=== PATIENT | female | born 1955 | race Caucasian/White ===

== ENCOUNTER 2019-06-01 05:06 | Inpatient (IN) | payer OTHER ==
[~2019-06-01] VITALS: Ht 162.6 cm; Wt 86.2 kg
[2019-06-01] VITALS (12 sets, daily range): BP systolic 122–157; BP diastolic 1–107
--- NOTE | 2019-06-01 05:30 | NUR ---
RN MS ADMITTING NOTES SCHEDULED DAY SURGERY PATIENT CAME IN FOR DAY SURGERY FOR LEFT TOTAL KNEE ARTHROPLASTY, CONSENTS SIGNED BELONGINGS LIST DONE, IV SITE TO LEFT WRIST #20 G INTACT AND PATENT, PER PATIENT STATES " SHE HAS NO WOUNDS OR SKIN ISSUES", MED RECON IN PLACE, MEDICATIONS PLACED IN MEDICATION ENVELOPE PATIENT AWARE OF MEDS WILL BE PLACED IN PHARMACY , RECIEPT IN CHART, ACCUCHECK 227 PATIENT IS NPO, ALL NEEDS ATTENDED AT THIS TIME, ALLERGIES PLACED , STATES ALLERGIC TO ANCEF, KEFLEX, MORPHINE, AND VANCOMYCIN.
[2019-06-01] MEDS ORDERED: GLIP10TA11 PO (05:36)
[2019-06-01] MEDS ORDERED: METF750T2 PO (05:36)
[2019-06-01] MEDS ORDERED: SIMV20TA6 PO (05:36)
--- NOTE | 2019-06-01 06:00 | NUR ---
RN MS NOTES RECEIVED CALL FROM DAY SURGERY , MADE AWARE OF ALLERGIES. PER SURGERY OKAY TO SEND PATIENT.
[2019-06-01] MEDS ORDERED: ANESTHESIA TRAY IN PYXIS 1 EA TRAY MC ONE (06:06)
[2019-06-01] MEDS ORDERED: BACITRACIN 50000 UNITS/VIAL ONE (06:07)
--- NOTE | 2019-06-01 06:23 | NUR ---
mari bernabe notes patient was picked up by surgery staff left in stable condition. Addendum: 06/01/19 at 0724 by EDWAR DSOUZA RN closing notes
[2019-06-01] MEDS ORDERED: MIDAZOLAM HCL 2 MG/2ML VIAL ONE (06:26)
[2019-06-01] MEDS ORDERED: FENTANYL PF 250MCG/5ML AMPUL ONE (06:27)
[2019-06-01] MEDS ORDERED: FENTANYL PF 100MCG/2ML AMPUL ONE (06:28)
[2019-06-01] MEDS ORDERED: BUPIVACAINE 0.25% 75 MG/30 ML VIAL ONE (06:28)
[2019-06-01] MEDS ORDERED: CLINDAMYCIN 900 MG/6 ML VIAL ONE (06:47)
[2019-06-01] MEDS ORDERED: TRANEXAMIC ACID 3,000 MG in SODIUM CHLORIDE IRRIG SOLUTION 70 ML IR ONE (07:00)
--- NOTE | 2019-06-01 07:21 | NUR ---
rn ms notes will take patient medications to pharmacy
--- NOTE | 2019-06-01 07:30 | NUR ---
MS DARCY AM NOTES RECEIVED REPORT FROM [employer] APPRENTICE. PATIENT PICKED UP AND TAKEN FOR SCHEDULED SURGERY.
[2019-06-01] MEDS ORDERED: BUPIVACAINE 0.5 % PF 150 MG/30 ML VIAL ONE (08:28)
--- NOTE | 2019-06-01 10:00 | NUR ---
MS RN NOTES PATIENT BACK FROM SURGERY. S/P TKA LEFT KNEE BY DR. BAUGH. AAO X3. NOT IN ANY DISTRESS. SURGICAL DRESSING TO LEFT KNEE. ALL POST OP ORDERS CARRIED OUT. VS TAKEN STABLE AND RECORDED.
[2019-06-01] MEDS ORDERED: DEXTROSE 50%-WATER 50 ML DISP.SYRIN IV PRN (11:30)
[2019-06-01] MEDS ORDERED: ONDANSETRON HCL/PF 4 MG/2 ML VIAL IV PRN (11:30)
[2019-06-01] MEDS: BLOOD SUGAR DIAGNOSTIC 1 EACH STRIP IN SCH ×3 (12:00→21:31)
[2019-06-01] MEDS ORDERED: COLACE 250 MG CAPSULE PO PRN (12:30)
[2019-06-01] MEDS ORDERED: ZOFRAN 4mg/2ML IV PRN (12:30)
[2019-06-01] MEDS ORDERED: DULCOLAX 10 MG/SUPP.RECT RC PRN (12:30)
[2019-06-01] MEDS ORDERED: TYLENOL 650 MG TABLET PO PRN (12:30)
[2019-06-01] MEDS ORDERED: AMBIEN 5 MG TABLET PO PRN (12:30)
[2019-06-01] MEDS ORDERED: SENOKOT 8.6 MG TABLET PO PRN (12:30)
[2019-06-01] MEDS ORDERED: oxyCODONE/APAP (5/325 MG) 1 UDTAB TABLET PO PRN ×2 (13:00)
[2019-06-01] MEDS ORDERED: HYDROCODONE/APAP 5/325MG 1 EACH TABLET PO PRN (13:00)
[2019-06-01] MEDS: CLINDAMYCIN 600 MG in IV D5W 50 ML IV SCH ×2 (13:54→18:15)
[2019-06-01] MEDS: IV D5/0.45 NACL 1,000 ML IV PRN ×2 (15:33→23:45)
[2019-06-01] MEDS: INSULIN REGULAR, HUMAN 100 UNIT/ML 3 ML VIAL SQ PRN ×2 (17:46→21:35)
[2019-06-01] MEDS: SIMVASTATIN 20 MG TABLET PO SCH (18:15)
--- NOTE | 2019-06-01 19:10 | NUR ---
CHANGE OF SHIFT REPORT Patient in bed, on RA, no evidence of shortness of breath. Left knee dressing C/D/I s/p TKA Left today per report. IVF infusing. Patient reports no pain at this time. Instruction to use call light for assistance, verbalized understanding. Maintained safety.
[2019-06-01] MEDS ORDERED: HYDROMORPHONE 1 MG/1 ML DISP.SYRIN SQ ONE (19:22)
[2019-06-01] MEDS ORDERED: diphenhydrAMINE HCL 25 MG CAPSULE PO PRN (19:30)
[2019-06-01] MEDS ORDERED: hydrOXYzine 10 MG TABLET PO PRN (19:30)
[2019-06-01] MEDS ORDERED: HYDROMORPHONE 1 MG/1 ML DISP.SYRIN SQ PRN ×2 (19:30→20:00)
[2019-06-01] MEDS ORDERED: MAGNESIUM HYDROXIDE 30 ML UDC PO PRN (19:30)
[2019-06-01] MEDS ORDERED: CLONIDINE HCL 0.1 MG TABLET PO PRN (19:30)
[2019-06-01] MEDS ORDERED: MAG HYDROX/AL HYDROX/SIMETH 30 ML UDC PO PRN (20:00)
--- NOTE | 2019-06-01 20:05 | NUR ---
PAIN MANAGEMENT Patient is seen by Dr. Fraser for pain management. Dilaudid indication and possible s/e explained to patient, verbalized understanding. Dilaudid given, will reassess pain scale. Maintained safety.
[2019-06-01] MEDS: FAMOTIDINE (20 MG) 20 MG TABLET PO SCH (21:07)
[2019-06-01] MEDS: CITALOPRAM HYDROBROMIDE 10 MG TABLET PO SCH (21:10)
--- NOTE | 2019-06-01 21:12 | NUR ---
REFUSED CELEXA Education provided, risk and benefits explained. Opened medication was wasted.
[2019-06-01] MEDS: oxyCODONE IR immediate release 5 MG PO PRN (23:29)
--- NOTE | 2019-06-02 00:01 | NUR ---
URINALYSIS Urine specimen collected and sent to lab for test.
[2019-06-02] MEDS ORDERED: hydrOXYzine 10 MG TABLET PO PRN (01:30)
[2019-06-02] MEDS: oxyCODONE IR immediate release 5 MG PO PRN ×2 (02:33→14:08)
[2019-06-02 06:17] LABS: BASOPHILS % (AUTO) 0.2 % (0.0-2.0); EOSINOPHILS % (AUTO) 0.4 % (0.0-6.0); HEMATOCRIT 41 % (33-45); HEMOGLOBIN 13.8 g/dL (11.5-14.8); LYMPHOCYTES # (AUTO) 1.5 /CMM (0.8-4.8); LYMPHOCYTES % (AUTO) 14.1 % (20.0-44.0); MEAN CORPUSCULAR HGB CONC 34 g/dl (31.0-36.0); MEAN CORPUSCULAR VOLUME 93 fL (82-100); MONOCYTES # (AUTO) 0.9 /CMM (0.1-1.30); MONOCYTES % (AUTO) 8.6 % (2.0-12.0); NEUTROPHILS # (AUTO) 8.3 /CMM (1.8-8.9); NEUTROPHILS % (AUTO) 76.7 % (43.0-81.0); PLATELET COUNT (AUTO) 213 /CMM (150-450); RED BLOOD CELL COUNT(AUTO) 4.41 MIL/uL (4.0-5.2); WHITE BLOOD COUNT (AUTO) 10.8 K/uL (4.3-11.0)
--- NOTE | 2019-06-02 06:20 | NUR ---
END OF SHIFT REPORT Patient in bed, Stable oxygen saturation on RA. Left knee dressing C/D/I, pain managed with PRN Oxy IR and PRN Dilaudid. MD to change dressing, s/p Left TKA yesterday by Dr. De La Rosa. IVF infusing, maintained at 125ml/hr. IV abx as scheduled with no adverse s/e. Flores cath to gravity with adequate output. PT consult, FWB LLE per ortho. Maintained safety, fall precaution. Will endorse to oncoming RN.
[2019-06-02 06:24] LABS: APPEARANCE,URINE SL CLOUDY (CLEAR); BILIRUBIN,URINE NEGATIVE (NEGATIVE); BLOOD, URINE 3+ Ery/uL (NEGATIVE); KETONES,URINE NEGATIVE (NEGATIVE); LEUKOCYTE ESTERASE ,URINE TRACE (NEGATIVE); NITRITE, URINE NEGATIVE (NEGATIVE); PH,URINE 5.5 (5.0-8.0); PROTEIN,URINE NEGATIVE (NEGATIVE); UGLUCOSE 3+ mg/dL (NEGATIVE); UROBILINOGEN,URINE 0.2 EU/dL (0.2)
[2019-06-02 06:29] LABS: COLOR,URINE YELLOW (YELLOW)
[2019-06-02 06:41] LABS: BACTERIA,URINE Moderate /HPF (None Seen); SQUAMOUS EPITHELIAL CELL,UR Few /HPF (None Seen)
[2019-06-02 06:42] LABS: CALCIUM, SERUM 8.1 mg/dL (8.5-10.1); CREATININE 0.9 mg/dL (0.6-1.3); MAGNESIUM 1.7 mg/dL (1.8-2.4)
[2019-06-02] MEDS: INSULIN REGULAR, HUMAN 100 UNIT/ML 3 ML VIAL SQ PRN ×4 (06:52→21:43)
[2019-06-02] MEDS: BLOOD SUGAR DIAGNOSTIC 1 EACH STRIP IN SCH ×4 (06:52→21:39)
--- NOTE | 2019-06-02 07:35 | NUR ---
ms rn received on bed, awake,alert,oriented x4,not in any form of distress, respirations even and unlabored,no sob noted, lungs are clear, abdomen soft,positive bowel sounds, s/p knee surgery, denies pain at this time, will monitor patient's condition.
[2019-06-02 08:00] VITALS: BP 165/91
[2019-06-02] MEDS ORDERED: Magnesium 1GM/D5W 100ML PREMIX PIGGYBACK IV ONE (09:00)
--- NOTE | 2019-06-02 09:20 | NUR ---
ms guerra breakfast served,due meds given,tolerated well.
[2019-06-02] MEDS: IV D5/0.45 NACL 1,000 ML IV PRN (09:40)
[2019-06-02] MEDS: ASPIRIN 325 MG TABLET PO SCH ×2 (09:40→18:12)
[2019-06-02] MEDS: FAMOTIDINE (20 MG) 20 MG TABLET PO SCH ×2 (09:40→21:36)
[2019-06-02] MEDS: DOCUSATE SODIUM 100 MG CAPSULE PO SCH ×2 (09:40→18:12)
[2019-06-02] MEDS: HYDROMORPHONE 1 MG/1 ML DISP.SYRIN SQ PRN (10:04)
[2019-06-02 15:29] VITALS: BP 153/91
[2019-06-02] MEDS: SIMVASTATIN 20 MG TABLET PO SCH (18:12)
--- NOTE | 2019-06-02 19:00 | NUR ---
MS RN ON BED, NO DISTRESS NOTED.
--- NOTE | 2019-06-02 19:05 | NUR ---
CHANGE OF SHIFT REPORT Patient is awake sitting in the chair. On RA, no evidence of shortness of breath. Left knee dressing C/D/I. IVF infusing. Patient reports no pain at this time. Instruction to use call light for assistance, verbalized understanding. Maintained safety.
[2019-06-02 20:00] VITALS: BP_SYST 120; BP_SYST 140; BP_SYST 148; BP_DIAS 73; BP_DIAS 90
[2019-06-02] MEDS: CITALOPRAM HYDROBROMIDE 10 MG TABLET PO SCH (21:36)
[2019-06-02] MEDS: INSULIN GLARGINE, 100 UNIT/ML CARTRIDGE SQ SCH (21:44)
--- NOTE | 2019-06-03 06:08 | NUR ---
END OF SHIFT REPORT Patient in bed, Stable oxygen saturation on RA. Left knee dressing C/D/I, denies pain. Voiding well. Ambulates to the bathroom, FWB LLE, FWW standby assist. Fall precaution. Dressing to be changed by ortho today. Maintained safety, will endorse to oncoming RN.
[2019-06-03] MEDS: INSULIN REGULAR, HUMAN 100 UNIT/ML 3 ML VIAL SQ PRN ×4 (07:23→21:37)
[2019-06-03] MEDS: BLOOD SUGAR DIAGNOSTIC 1 EACH STRIP IN SCH ×4 (07:23→21:15)
--- NOTE | 2019-06-03 07:55 | NUR ---
MS RN RECEIVED ON BED, AWAKE, ALERT,ORIENTED X4,NOT IN ANY FORM OF DISTRESS, S/P LEFT KNEE SURGERY W/ DRESSING DRY AND INTACT, DENIES PAIN AT THIS TIME, WILL MONITOR PATIENT'S CONDITION.
[2019-06-03 08:00] VITALS: BP 153/79
[2019-06-03] MEDS: ASPIRIN 325 MG TABLET PO SCH ×2 (08:44→17:38)
[2019-06-03] MEDS: DOCUSATE SODIUM 100 MG CAPSULE PO SCH ×2 (08:44→17:35)
[2019-06-03] MEDS: FAMOTIDINE (20 MG) 20 MG TABLET PO SCH ×2 (08:44→21:00)
[2019-06-03] MEDS: METFORMIN 500 MG TABLET PO SCH ×2 (08:44→17:35)
--- NOTE | 2019-06-03 09:30 | NUR ---
MS TAVERAS BREAKFAST SERVED,DUE MEDS GIVEN,TOLERATED WELL.
[2019-06-03] MEDS ORDERED: MAGNESIUM HYDROXIDE 30 ML UDC PO ONE (14:53)
[2019-06-03 16:00] VITALS: BP 141/87
--- NOTE | 2019-06-03 17:00 | NUR ---
MS RN PATIENT TRANSFERRED TO 309-1,ALL NEEDS ATTENDED.
[2019-06-03] MEDS: SIMVASTATIN 20 MG TABLET PO SCH (17:34)
[2019-06-03] MEDS: HYDROMORPHONE 1 MG/1 ML DISP.SYRIN SQ PRN (18:25)
[2019-06-03 20:00] VITALS: BP 120/66
--- NOTE | 2019-06-03 20:00 | NUR ---
MS/RN OPENING NOTES RECEIVED PATIENT IN BED, AWAKE, ALERT X3, ABLE TO VERBALIZE NEEDS, REPORTED TOLERABLE PAIN, ABLE TO DISTRACT SELF BY WATCHIN TV, COMPLIANT TO MEDICATION, RESPIRATIONS EVEN AND UNLABORED, SKIN WARM TO TOUCH, ABLE TO AMBULATE WITH WALKER. BED LOCKED, CALL LIGHTS WITHIN REACH, WILL MONITOR, INSTRUCTED TO USE CALL LIGHTS FOR ASSISTACNE, BELONGINGS WITHIN REACH, FLUIDS PROVIDED.
[2019-06-03] MEDS: CITALOPRAM HYDROBROMIDE 10 MG TABLET PO SCH (21:24)
[2019-06-03] MEDS: INSULIN GLARGINE, 100 UNIT/ML CARTRIDGE SQ SCH (21:30)
--- NOTE | 2019-06-04 00:47 | NUR ---
///DARCY NOTES/PAIN REPORTED ON LEFT LEG DILAUDID ML GIVEN FOR PAIN LEVEL IV WILL MONITOR. Addendum: 06/04/19 at 0422 by CLAIRE HAUSER RN /DARCY NOTES PER ORDEROF PAIN MANAGEMENT TO ADMINISTER DILAUDID VIA SQ ROUTE MONITORED FOR SAFETY.
[2019-06-04] MEDS: BLOOD SUGAR DIAGNOSTIC 1 EACH STRIP IN SCH ×2 (06:15→12:53)
[2019-06-04] MEDS: INSULIN REGULAR, HUMAN 100 UNIT/ML 3 ML VIAL SQ PRN ×2 (06:42→12:57)
--- NOTE | 2019-06-04 07:14 | NUR ---
309-1 MS/RN NOTES PATIENT ABLE TO SLEEP DURING THE NIGHT, PAIN MONITORED AND MANAGED WITH RELIEF, COMPLIANT TO CARE, MOTIVATED, KEPT COMFORTABLE, FLUIDS AND SNACKS OFFERED. BED LOCKED, CALL LIGHTS WITHIN REACH. WILL MONITOR AND ENDORSE TO AM RN FOR BRAYDON.
--- NOTE | 2019-06-04 07:50 | NUR ---
ms rn received on bed, awake,alert,oriented x4,not in any form of distress, respirations even and unlabored,no sob noted, lungs are,clear,abdomen soft,positive bowel sounds,denies pain at this time, radu monitor patient's condition.
[2019-06-04 08:00] VITALS: BP 125/65
[2019-06-04] MEDS: METFORMIN 500 MG TABLET PO SCH ×2 (09:40→17:04)
[2019-06-04] MEDS: FAMOTIDINE (20 MG) 20 MG TABLET PO SCH (09:40)
[2019-06-04] MEDS: ASPIRIN 325 MG TABLET PO SCH ×2 (09:40→17:04)
[2019-06-04] MEDS: DOCUSATE SODIUM 100 MG CAPSULE PO SCH ×2 (09:40→17:04)
[2019-06-04] MEDS: oxyCODONE IR immediate release 5 MG PO PRN ×2 (09:55→17:05)
--- NOTE | 2019-06-04 10:00 | NUR ---
ms mari dyer served,due meds given,tolerated well.
--- NOTE | 2019-06-04 11:00 | NUR ---
ms rn was seen by esther escamilla/ order to go home today.
[2019-06-04 16:00] VITALS: BP 114/60
--- NOTE | 2019-06-04 17:00 | NUR ---
ms rn patient's dressing changed,w/ no complication noted.
[2019-06-04] MEDS: SIMVASTATIN 20 MG TABLET PO SCH (17:04)
--- NOTE | 2019-06-04 17:20 | NUR ---
ms rn patient went home accompanied by son, instructions given, though how to give lantus at night,all needs attended.
== END 2019-06-04 17:31 | disposition home health service (06) | DRG 470 ==
LOC: DS 05:06 → MED 05:16
PROVIDERS: ADMIT Nurse Practitioner Acute Care; ATTEND Nurse Practitioner Acute Care
PROC: 0SRD0J9 Replacement of Left Knee Joint with Synthetic Substitute, Cemented, Open Approach (ICD-10-PCS; principal; 2019-06-01)
DX: M17.12 Unilateral primary osteoarthritis, left knee (principal); E87.1 Hypo-osmolality and hyponatremia; E66.9 Obesity, unspecified; E78.5 Hyperlipidemia, unspecified; Z68.32 Body mass index [BMI] 32.0-32.9, adult; E83.42 Hypomagnesemia; F41.9 Anxiety disorder, unspecified; E11.65 Type 2 diabetes mellitus with hyperglycemia; Z79.84 Long term (current) use of oral hypoglycemic drugs
CPT/HCPCS: 36415; 80048-TC; 81000-TC; 82962-TC; 83735-TC; 85025-TC; 85027-TC; 87081-TC; 87086-TC; 88305-TC; 88311-TC; 97110-TC; 97116-TC; 97530-TC; 97760-TC; A4217; A6403; C1713; G0378; J1170; J1815; J2250; J2405; J2704; J2765; J3010; J3475; J3490; J7050; J7060; L1830